=== PATIENT | female | born 1980 | race Caucasian/White ===

== ENCOUNTER → 2024-02-07 15:28 | Outpatient (REF) | payer MEDICARE, SELFPAY | LOC: WDC 15:28 | PROVIDERS: ATTENDING PHYSICIAN Nurse Practitioner Family | DX: Z12.31 Encounter for screening mammogram for malignant neoplasm of breast (principal) | CPT/HCPCS: 77063; 77067 ==

== ENCOUNTER → 2024-02-27 12:52 | Outpatient (REF) | payer MEDICARE, SELFPAY | LOC: RAD 12:52 | PROVIDERS: ATTENDING PHYSICIAN Nurse Practitioner Family | DX: R22.2 Localized swelling, mass and lump, trunk (principal); R10.2 Pelvic and perineal pain; Z86.018 Personal history of other benign neoplasm | CPT/HCPCS: 76705; 76830; 76856 ==

== ENCOUNTER → 2024-03-16 16:39 | Outpatient (REF) | payer MEDICARE, SELFPAY | LOC: RAD 16:39 | PROVIDERS: ATTENDING PHYSICIAN Nurse Practitioner Family | DX: R22.2 Localized swelling, mass and lump, trunk (principal) | CPT/HCPCS: 76536 ==

== ENCOUNTER → 2024-05-15 11:39 | Outpatient (REF) | payer OTHER, SELFPAY | LOC: RAD 11:39 | PROVIDERS: ATTENDING PHYSICIAN Nurse Practitioner Family | DX: R59.0 Localized enlarged lymph nodes (principal) | CPT/HCPCS: 71260; Q9967 ==

== ENCOUNTER 2024-06-09 10:40 | Emergency (ER) | payer OTHER, SELFPAY ==
[2024-06-09 10:49] VITALS: BP 118/84
--- NOTE | 2024-06-09 11:02 | ED.GENMED ---
History of Present Illness
General
Chief Complaint: Eye Problems
Source: patient
Time Seen by Provider: 06/09/24 10:55
History of Present Illness
History of Present Illness:
43-year-old female with past medical history of previous lower GI bleeding, anxiety and depression presenting to the emergency department for evaluation of left upper eyelid erythema and edema that has been ongoing and gradually worsening for the
last 2 weeks. Seen by primary care provider who prescribed her antibiotic ointment but without any relief. Has been using warm compresses and her usual chronic pain medication but without much relief. Patient contacted her provider today and was
recommended to come to the ER for evaluation with concerns for possible preseptal cellulitis. No fevers, chills, rigors. Patient does state that it feels as if her vision is a little bit blurred as well
Past History
Past History
ED Past Medical History: Other (Chronic pain) and Other (Ulcers)
ED Past Surgical History: Gynecological (Uterine myometa) and Other
Social History
Tobacco: Smoker
Alcohol: Occasional
Drug: None
Personal: Partner
Living: with family
Family History
Family History: Cancer; Negative Diabetes, Hypertension, Early CAD or Asthma
Review of Systems
Review of Systems
All Other Systems: ROS reviewed and negative except as documented in HPI and ROS
Phy Exam
Physical Exam
Physical Exam:
GENERAL: Alert , in no apparent distress
EYE: conjunctiva clear, moderate left upper lid edema/erythema/pain, left upper lid stye noted, no periorbital edema/erythema. EOMI without pain, pupils 3mm b/l, PERRL,
Head: Normocephalic atraumatic
NECK: Supple,
ENT: mmm.
LUNGS: no acute respiratory distress
NEUROLOGICAL: Alert and oriented
SKIN: Warm and dry, skin intact.
MUSCULOSKELETAL: well perfused.
PSYCH: Normal and appropriate interaction.
Scores
Heart Failure Risk
Heart Failure Risk Score: Not Applicable
Heart Score for Chest Pain Patients
STEMI patient?: Not applicable
Withdrawal Assessment of Alcohol
Withdrawal Assessment Completed?: Not applicable
Course
Orders/Labs/Results
Orders:
Orders
06/09/24 11:02
CT Facial Bones W/ Iv Contrast Urgent
Comment:
Reason For Exam: left upper lid pain/erythema, early cellulitis?
Ketorolac [Toradol] 30 mg IV NOW STA
06/09/24 11:05
Visual Acuity- Treatment ONCE
06/09/24 11:11
Basic Metabolic Panel Urgent
Complete Blood Count/With Diff Urgent
Abnormal Lab Results
06/09/24
11:11
MPV 10.5 H fL
(7.4-10.4)
06/09/24 11:11
06/09/24 11:11
Vital Signs
Initial and Last Documented VS:
Initial Vital Signs
Temp Pulse Resp BP Pulse Ox
98 F 86 18 118/84 100
06/09/24 10:49 06/09/24 10:49 06/09/24 10:49 06/09/24 10:49 06/09/24 10:49
Last Documented Vital Signs
Temp Pulse Resp BP Pulse Ox
98 F 86 18 118/84 100
06/09/24 10:49 06/09/24 10:49 06/09/24 10:49 06/09/24 10:49 06/09/24 10:49
MDM/Problems Addressed
Differential Diagnosis Includes:
stye, preseptal cellulitis, blepharitis, abscess
MDM/Problems Addressed:
43-year-old female presenting to the ER for evaluation of left upper eyelid pain, erythema and edema has been ongoing for 2 weeks, not responding to warm compresses and topical antibiotic ointment. Exam is most consistent with a left upper eyelid
stye. Patient's primary care provider was concerned for preseptal cellulitis so will obtain labs and CT imaging to assess further although I am less suspicious for this as a diagnosis. Toradol ordered for pain control. Reassessment following with
anticipated discharge home and will likely need close outpatient ophthalmology follow-up
*Radiology
Radiology exam reviewed: radiology read reviewed
*Pulse Oximetry
Patient hypoxic: no
*Critical Care Note
Total Time (30-74mins, 75-104mins- exclusive of procedures): Not Applicable
Patient Management
Escalation/DeEscalation of care consider admission/obs:
CT scan is negative for any acute pathologies. Stable for d/c home. Outpatient information provided. Aware of return precautions
ED Attending Note
-
Portions of this chart may have been created with voice recognition software.� Occasional wrong word or��sound alike� substitutions may have occurred due to the inherent limitations of voice recognition software.
Discharge Plan
Departure
Patient Disposition: Home (Routine Discharge)
Date of Disposition: 06/09/24
Time of Disposition: 12:08
Patient with high blood pressure during this ER visit?: No
Discharge Problem:
Hordeolum internum left upper eyelid
Instructions: Stye
Prescriptions:
No Action
clonazepam 0.5 MG tablet
1 mg PO TIDPRN PRN (Reason: anxiety)
albuterol sulfate 1 PUFF HFA aerosol inhaler
1 puff inhalation R Q4HPRN PRN (Reason: sob, wheezing)
pantoprazole 40 MG tablet,delayed release (DR/EC)
40 mg PO BID Qty: 60 0RF
dextroamphetamine-amphetamine [Adderall] 20 MG tablet
20 mg PO DAILY
oxycodone 10 MG tablet
20 mg PO QID
Ther-Biotic Complete
25 cfu PO ONCE
Referrals:
Gisele Orozco MD [Family Provider] -
Dahiana Velez MD [Active] -
Interventions
Interventions:
*Risk Screen - Suicide Last Done: 06/09/24 10:49
*General Assessment Last Done: 06/09/24 11:28
*Neglect/Abuse Screening Last Done: 06/09/24 10:49
ED- Fall Risk Assessment Last Done: 06/09/24 11:29
*ED COVID-19 Vaccine History Last Done: 06/09/24 11:28
Discharge Date and Time
Print Language: [place]
[2024-06-09] MEDS: TORADOL 30 MG IV (11:05)
[2024-06-09 11:27] VITALS: BMI 24.9
[2024-06-09 11:34] LABS: % Basophils 0.7 % (0-2); % Eosinophils 1.3 % (0-6); % Immature Granulocytes 0.1 % (0-0.5); % Lymphocytes 29.2 % (20.5-51.1); % Monocytes 6.9 % (1.7-9.3); % Neutrophils 61.8 % (42.2-75.2); Absolute Basophils 0.1 10^3/uL (0-0.2); Absolute Eosinophils 0.1 10^3/uL (0-0.7); Absolute Lymphocytes 2.1 10^3/uL (1.2-3.4); Absolute Monocytes 0.5 10^3/uL (0.1-0.6); Absolute Neutrophils 4.5 10^3/uL (1.4-6.5); Hematocrit 37.7 % (37.0-47.0); Hemoglobin 12.9 g/dL (12.0-16.0); Mean Corp Hgb Conc. 34.2 g/dL (33.0-37.0); Mean Corpuscular Hgb 30.1 pg (27.0-31.0); Mean Corpuscular Volume 88.1 fL (81.0-99.0); Mean Platelet Volume 10.5 fL (7.4-10.4); Nucleated Red Blood Cells % 0 %; Platelet Count 240 10^3/uL (130-400); Red Blood Cell Count 4.28 10^6/uL (4.20-5.40); Red Cell Dist. Width 12.8 % (11.5-14.5); White Blood Cell Count 7.2 10^3/uL (4.8-10.8)
[2024-06-09 11:46] LABS: Blood Urea Nitrogen 14 mg/dl (7-17); Calcium 9.4 mg/dl (8.4-10.2); Carbon Dioxide 24 mmol/L (22-30); Chloride 105 mmol/L (98-107); Estimated Creatinine Clearance 80 ml/min; Glucose 84 mg/dl (70-99); Sodium 140 mmol/L (135-145); eGFR > 60.00
[2024-06-09 12:17] VITALS: BP 101/70
== END 2024-06-09 12:18 | disposition home or self-care (01) ==
LOC: EMR 10:40
PROVIDERS: Physician Assistant Medical; EMERGENCY PHYSICIAN Student in an Organized Health Care Education/Training Program; FAMILY PHYSICIAN Family Medicine
DX: H00.024 Hordeolum internum left upper eyelid (principal); F41.8 Other specified anxiety disorders; F17.200 Nicotine dependence, unspecified, uncomplicated; Z82.49 Family history of ischemic heart disease and other diseases of the circulatory system
CPT/HCPCS: 99284; 70487; 80048; 85025; Q9967